=== PATIENT | female | born 1985 | race Caucasian/White ===

== ENCOUNTER 2022-08-11 20:49 | Emergency (ER) | payer OTHER ==
[~2022-08-11] VITALS: Ht 167.6 cm; Wt 59.0 kg
== END 2022-08-11 22:50 | disposition home or self-care (01) ==
LOC: ER 20:49
DX: Z00.8 Encounter for other general examination (principal)
CPT/HCPCS: 99284

== ENCOUNTER 2022-08-14 20:50 | Emergency (ER) | payer OTHER ==
[~2022-08-14] VITALS: Ht 167.6 cm; Wt 59.0 kg
== END 2022-08-14 22:55 | disposition home or self-care (01) ==
LOC: ER 20:50
DX: Z23 Encounter for immunization (principal)
CPT/HCPCS: 90714